=== PATIENT | male | born 1985 | race American Indian/Alaskan Native ===

== ENCOUNTER 2017-10-10 08:38 | Emergency (ER) | payer OTHER ==
[2017-10-10] MEDS ORDERED: NACL 0.9% 500 ML 500 ML IV ONE (08:52)
[2017-10-10] MEDS ORDERED: MOTRIN PO ONE (08:57)
[2017-10-10] MEDS ORDERED: NACL 0.9% 1000 ML 1,000 ML IV ONE ×3 (09:11→11:00)
[2017-10-10 09:29] LABS: Alanine Aminotransferase 45 units/L (7-56); Albumin 3.8 g/dL (3.9-5); BUN/Creatinine Ratio 10; Blood Urea Nitrogen 11 mg/dL (9-20); Calcium 8.7 mg/dL (8.4-10.2); Hemolysis Index 1
--- NOTE | 2017-10-10 09:31 | XRay Report ---
AP CHEST: HISTORY: Sepsis AP view of the chest demonstrates a normal mediastinal and cardiac contour with clear lungs and normal bony and soft tissue structures. IMPRESSION: Unremarkable AP chest.
[2017-10-10 09:36] LABS: Basophils # (Auto) 0.1 K/mm3 (0.0-0.1); Basophils % (Auto) 0.3 % (0.0-1.8); Hematocrit 43.9 % (35.5-45.6); Hemoglobin 14.2 gm/dl (11.8-15.2); Lymphocytes # (Auto) 1.6 K/mm3 (1.2-5.4); Lymphocytes % (Auto) 10.6 % (13.4-35.0); Mean Corpuscular HGB Conc 32 % (32-34); Mean Corpuscular Hemoglobin 28 pg (28-32); Mean Corpuscular Volume 86 fl (84-94); Monocytes # (Auto) 1.9 K/mm3 (0.0-0.8); Monocytes % (Auto) 12.9 % (0.0-7.3); Platelet Count 211 K/mm3 (140-440); Red Blood Count 5.13 M/mm3 (3.65-5.03); Red Cell Distribution Width 14.8 % (13.2-15.2)
[2017-10-10 09:46] LABS: INR 1.05 (0.87-1.13)
[2017-10-10] MEDS ORDERED: cefTRIAXone 1 GM in NACL 0.9% 20 ML IV ONE (10:45)
[2017-10-10] MEDS ORDERED: ROCEPHIN/NS 1 GM/50 ML 1 GM/50 ML BAG IV ONE (11:00)
[2017-10-10 12:06] VITALS: BP 125/75
[2017-10-10 12:08] LABS: Bilirubin,Urine NEG (Negative); Blood,Urine SM (Negative); Color,Urine Amber (Yellow); Mucus,Urine 3+ /HPF
--- NOTE | 2017-10-10 12:23 | Emergency Department Report ---
ED General Adult HPI - General Chief complaint: Fever Stated complaint: FLU LIKE SYMPTOMS Time Seen by Provider: 10/10/17 09:09 Source: patient Mode of arrival: Ambulatory Limitations: No Limitations - History of Present Illness Initial comments: Patient complains of fever and generalized illness, fatigue and sore throat since Sunday. He listed a headache in triage but is denying headache to me. He states that he has been crying a lot because he feels bad. He is not depressed or suicidal though. He denies any neck soreness or stiffness. He said no photophobia. He denies rash. His only positive complaint focus myers was sore throat. He states that his girlfriend had some similar symptoms. He did not recently take his temperature. -: days(s) Location: mouth (sore throat only ) Severity scale (0 -10): 7 Quality: other Consistency: intermittent Improves with: none Associated Symptoms: denies other symptoms, fever/chills, weakness Treatments Prior to Arrival: none - Related Data Previous Rx's Medication Instructions Recorded Last Taken Type Azithromycin [Zithromax Z-MARTÍNEZ] 250 mg PO DAILY #6 tab 10/10/17 Unknown Rx Allergies Allergy/AdvReac Type Severity Reaction Status Date / Time No Known Allergies Allergy Unverified 10/10/17 08:52 ED Review of Systems ROS: Stated complaint: FLU LIKE SYMPTOMS Other details as noted in HPI Constitutional: denies: chills, fever Eyes: denies: eye pain, eye discharge, vision change ENT: as per HPI, throat pain. denies: ear pain Respiratory: denies: cough, shortness of breath, wheezing Cardiovascular: denies: chest pain, palpitations Endocrine: no symptoms reported Gastrointestinal: denies: abdominal pain, nausea, diarrhea Genitourinary: denies: urgency, dysuria Musculoskeletal: denies: back pain, joint swelling, arthralgia Skin: denies: rash, lesions Neurological: denies: headache, weakness, paresthesias Psychiatric: denies: anxiety, depression Hematological/Lymphatic: denies: easy bleeding, easy bruising ED Past Medical Hx - Past Medical History Previous Medical History?: No - Surgical History Past Surgical History?: No - Social History Smoking Status: Current Every Day Smoker Substance Use Type: None - Medications Home Medications: Home Medications Medication Instructions Recorded Confirmed Last Taken Type Azithromycin [Zithromax Z-MARTÍNEZ] 250 mg PO DAILY #6 tab 10/10/17 Unknown Rx ED Physical Exam - General Limitations: No Limitations General appearance: alert, in no apparent distress - Head Head exam: Present: atraumatic, normocephalic - Eye Eye exam: Present: normal appearance, PERRL, EOMI. Absent: scleral icterus - ENT ENT exam: Present: mucous membranes moist, other (erythema and tonsillar hypertrophy bilaterally no obvious exudate. Uvula is midline. No signs of palate asymmetry.) - Neck Neck exam: Present: normal inspection. Absent: tenderness, meningismus - Respiratory Respiratory exam: Present: normal lung sounds bilaterally. Absent: respiratory distress - Cardiovascular Cardiovascular Exam: Present: normal rhythm, tachycardia. Absent: systolic murmur, diastolic murmur, rubs, gallop - GI/Abdominal GI/Abdominal exam: Present: soft, normal bowel sounds. Absent: distended, tenderness, guarding, rebound, rigid - Rectal Rectal exam: Present: deferred - Extremities Exam Extremities exam: Present: normal inspection. Absent: tenderness, calf tenderness - Back Exam Back exam: Present: normal inspection - Neurological Exam Neurological exam: Present: alert, oriented X3, CN II-XII intact. Absent: motor sensory deficit - Psychiatric Psychiatric exam: Present: normal affect, normal mood - Skin Skin exam: Present: warm, dry, intact, normal color. Absent: rash ED Course Vital Signs 10/10/17 10/10/17 10/10/17 08:44 09:45 10:00 Temperature 104.1 F H 102.6 F H Pulse Rate 144 H 118 H Respiratory 18 18 12 Rate Blood Pressure 133/58 133/83 O2 Sat by Pulse 96 92 95 Oximetry 10/10/17 10/10/17 10/10/17 10:16 10:30 10:46 Temperature Pulse Rate 113 H 116 H Respiratory 15 13 Rate Blood Pressure 133/83 133/83 133/83 O2 Sat by Pulse 95 95 96 Oximetry 10/10/17 10/10/17 10/10/17 11:00 11:16 11:30 Temperature Pulse Rate 112 H 109 H 126 H Respiratory 18 18 19 Rate Blood Pressure 134/86 134/86 134/86 O2 Sat by Pulse 92 95 95 Oximetry 10/10/17 10/10/17 10/10/17 11:46 11:58 12:00 Temperature 99.9 F H Pulse Rate 113 H 99 H Respiratory 17 24 Rate Blood Pressure 134/86 125/75 O2 Sat by Pulse 96 94 Oximetry - Reevaluation(s) Reevaluation #1: Patient's heart rate improved with IV fluid. He stated he felt much better and ready for discharge. His Monospot was negative but he had a relative monocytosis. I think mono is still a reasonable possibility for this patient. He was counseled to repeat his mono test with primary care provider. He will be covered with azithromycin empirically although his strep screen was negative. 10/10/17 12:21 ED Medical Decision Making - Lab Data Result diagrams: 10/10/17 08:56 10/10/17 08:56 Laboratory Results - last 24 hr 10/10/17 10/10/17 10/10/17 08:56 08:56 08:56 WBC 14.9 H RBC 5.13 H Hgb 14.2 Hct 43.9 MCV 86 MCH 28 MCHC 32 RDW 14.8 Plt Count 211 Lymph % (Auto) 10.6 L Collier % (Auto) 12.9 H Eos % (Auto) 0.0 Baso % (Auto) 0.3 Lymph # 1.6 Collier # 1.9 H Eos # 0.0 Baso # 0.1 Seg Neutrophils % 76.2 H Seg Neutrophils # 11.4 H PT 14.2 INR 1.05 VBG pH Sodium 135 L Potassium 3.8 Chloride 95.6 L Carbon Dioxide 24 Anion Gap 19 BUN 11 Creatinine 1.1 Estimated GFR > 60 BUN/Creatinine Ratio 10 Glucose 127 H Lactic Acid Calcium 8.7 Total Bilirubin 0.70 AST 40 ALT 45 Alkaline Phosphatase 73 Total Protein 8.1 Albumin 3.8 L Albumin/Globulin Ratio 0.9 Urine Color Urine Turbidity Urine pH Ur Specific Call Urine Protein Urine Glucose (UA) Urine Ketones Urine Blood Urine Nitrite Urine Bilirubin Urine Urobilinogen Ur Leukocyte Esterase Urine WBC (Auto) Urine RBC (Auto) U Epithel Cells (Auto) Urine Mucus Monoscreen Group A Strep Rapid 10/10/17 10/10/17 10/10/17 08:56 08:56 10:44 WBC RBC Hgb Hct MCV MCH MCHC RDW Plt Count Lymph % (Auto) Collier % (Auto) Eos % (Auto) Baso % (Auto) Lymph # Collier # Eos # Baso # Seg Neutrophils % Seg Neutrophils # PT INR VBG pH 7.471 H Sodium Potassium Chloride Carbon Dioxide Anion Gap BUN Creatinine Estimated GFR BUN/Creatinine Ratio Glucose Lactic Acid 1.40 Calcium Total Bilirubin AST ALT Alkaline Phosphatase Total Protein Albumin Albumin/Globulin Ratio Urine Color Urine Turbidity Urine pH Ur Specific Call Urine Protein Urine Glucose (UA) Urine Ketones Urine Blood Urine Nitrite Urine Bilirubin Urine Urobilinogen Ur Leukocyte Esterase Urine WBC (Auto) Urine RBC (Auto) U Epithel Cells (Auto) Urine Mucus Monoscreen Negative Group A Strep Rapid 10/10/17 10/10/17 11:43 Unknown WBC RBC Hgb Hct MCV MCH MCHC RDW Plt Count Lymph % (Auto) Collier % (Auto) Eos % (Auto) Baso % (Auto) Lymph # Collier # Eos # Baso # Seg Neutrophils % Seg Neutrophils # PT INR VBG pH Sodium Potassium Chloride Carbon Dioxide Anion Gap BUN Creatinine Estimated GFR BUN/Creatinine Ratio Glucose Lactic Acid Calcium Total Bilirubin AST ALT Alkaline Phosphatase Total Protein Albumin Albumin/Globulin Ratio Urine Color Maegan Urine Turbidity Clear Urine pH 5.0 Ur Specific Call 1.031 H Urine Protein 100 mg/dl Urine Glucose (UA) Neg Urine Ketones Tr Urine Blood Sm Urine Nitrite Neg Urine Bilirubin Neg Urine Urobilinogen 4.0 Ur Leukocyte Esterase Neg Urine WBC (Auto) 7.0 H Urine RBC (Auto) 9.0 U Epithel Cells (Auto) 1.0 Urine Mucus 3+ Monoscreen Group A Strep Rapid Negative Critical care attestation.: If time is entered above; I have spent that time in minutes in the direct care of this critically ill patient, excluding procedure time. ED Disposition Clinical Impression: Viral illness, Monocytosis, Volume depletion Pharyngitis Qualifiers: Pharyngitis/tonsillitis etiology: unspecified etiology Qualified Code(s): J02.9 - Acute pharyngitis, unspecified Disposition: DC-01 TO HOME OR SELFCARE Is pt being admited?: No Does the pt Need Aspirin: No Condition: Stable Instructions: Viral Syndrome (ED), Mononucleosis (ED), Pharyngitis (ED), Dehydration (ED) Additional Instructions: It is important that you follow up with a primary care provider within the next 24-48 hours. Return to the emergency department if you feel more ill or you develop any significant headache. I can't totally exclude a diagnosis of mono at this point and perhaps a mono test should be repeated sometime next week. I' m going to prescribe an antibiotic. See follow-up referral. Increase fluids. Tylenol every 4 hours for fever. Prescriptions: Azithromycin [Zithromax Z-MARTÍNEZ] 250 mg PO DAILY #6 tab Referrals: PRIMARY CARE, [Primary Care Provider] - 3-5 Days [facility] [Provider Group] - 24 Hours Time of Disposition: 12:24
== END 2017-10-10 12:40 | disposition home or self-care (01) ==
LOC: ED 08:38
DX: J02.9 Acute pharyngitis, unspecified (principal); E86.9 Volume depletion, unspecified; B34.9 Viral infection, unspecified; F17.200 Nicotine dependence, unspecified, uncomplicated
CPT/HCPCS: 36415; 71045; 80053; 81001; 82140; 82805; 85025; 85610; 86308; 87040; 87086; 87116; 87430; 96361; 96374; 99284; J0696; J7030